=== PATIENT | male | born 1975 | race Hispanic/Latino ===

== ENCOUNTER 2017-04-16 09:03 | Day surgery (SDC) | payer BC ==
[2017-04-09 12:38] VITALS: BMI 26.1
[2017-04-16] MEDS ORDERED: Propofol 10 mg/ml Inj (20 ML) ONE (10:08)
[2017-04-16 10:54] VITALS: O2SAT 98
[2017-04-16 11:43] VITALS: BP 142/61; PULSE 53; RESP 16; TEMP 97.5
[2017-04-16] MEDS ORDERED: Lactated Ringer's 1,000 ML IV SCH (12:15)
== END 2017-04-16 11:53 | disposition home or self-care (01) ==
LOC: ENDO 09:03
PROVIDERS: ATTEND Internal Medicine Gastroenterology
DX: Z12.11 Encounter for screening for malignant neoplasm of colon (principal); D12.5 Benign neoplasm of sigmoid colon; K57.30 Diverticulosis of large intestine without perforation or abscess without bleeding; K64.8 Other hemorrhoids; Z80.0 Family history of malignant neoplasm of digestive organs; Z86.010 Personal history of colon polyps
CPT/HCPCS: 45380; 88305; J2704; J7120